=== PATIENT | male | born 1990 | race Caucasian/White ===

== ENCOUNTER 2024-04-13 19:43 | Emergency (ER) | payer OTHER ==
[~2024-04-13] VITALS: Ht 182.9 cm; Wt 91.4 kg
[2024-04-13 20:34] VITALS: TEMP 98.4
[2024-04-13] MEDS: ACETAMINOPHEN 500 MG TABLET PO ONE (20:45)
[2024-04-13 21:47] VITALS: BP 132/75; PULSE 62; RESP 17
== END 2024-04-13 21:49 ==
LOC: EMS 19:43
DX: S63.502A Unspecified sprain of left wrist, initial encounter (principal); I10 Essential (primary) hypertension; Z88.0 Allergy status to penicillin; W19.XXXA Unspecified fall, initial encounter; Y93.89 Activity, other specified; Y92.89 Other specified places as the place of occurrence of the external cause; Y99.8 Other external cause status
CPT/HCPCS: 99284; 73110-TC; 73130-TC; Z7502; Z7610

== ENCOUNTER 2025-09-22 23:25 | Emergency (ER) | payer OTHER ==
[~2025-09-22] VITALS: Ht 180.3 cm; Wt 94.5 kg
[2025-09-23] MEDS: IBUPROFEN 400 MG TABLET PO ONE (00:55)
[2025-09-23] MEDS: ACETAMINOPHEN 500 MG TABLET PO ONE (00:56)
[2025-09-23] MEDS: LIDOCAINE 5% TRANSDERMAL PATCH TD ONE (00:56)
[2025-09-23] MEDS ORDERED: METH-812 PO (01:46)
[2025-09-23] MEDS ORDERED: LIDO-57 TP (01:46)
[2025-09-23 02:02] VITALS: BP 133/83; PULSE 89; RESP 18; TEMP 97.3; O2SAT 98
== END 2025-09-23 02:45 | disposition home or self-care (01) ==
LOC: EMS 23:29
DX: S33.5XXA Sprain of ligaments of lumbar spine, initial encounter (principal); I10 Essential (primary) hypertension; G89.29 Other chronic pain; Z98.890 Other specified postprocedural states; Z88.0 Allergy status to penicillin; X50.1XXA Overexertion from prolonged static or awkward postures, initial encounter; Y93.89 Activity, other specified; Y92.89 Other specified places as the place of occurrence of the external cause; Y99.8 Other external cause status
CPT/HCPCS: 99284; Z7502; Z7610

== ENCOUNTER 2025-09-28 23:45 | Emergency (ER) | payer OTHER ==
[~2025-09-28] VITALS: Ht 180.3 cm; Wt 95.5 kg
[~2025-09-28 23:45] MED LIST: LIDO-57 TP; METH-812 PO
[2025-09-29] MEDS: DOXYCYCLINE HYCLATE 100 MG TABLET PO ONE (01:23)
[2025-09-29] MEDS: ACETAMINOPHEN 500 MG TABLET PO ONE (01:23)
[2025-09-29] MEDS: IBUPROFEN 400 MG TABLET PO ONE (01:24)
[2025-09-29] MEDS: LIDOCAINE 1% 10 ML VIAL ID ONE (01:24)
[2025-09-29] MEDS ORDERED: DOXY-354 PO (03:14)
[2025-09-29 03:48] VITALS: BP 128/76; PULSE 70; RESP 16; TEMP 97.3; O2SAT 97
== END 2025-09-29 04:02 | disposition home or self-care (01) ==
LOC: EMS 23:45
DX: L02.416 Cutaneous abscess of left lower limb (principal); I10 Essential (primary) hypertension; Z98.890 Other specified postprocedural states; Z79.899 Other long term (current) drug therapy; Z88.0 Allergy status to penicillin
CPT/HCPCS: 99284; 10060; J3490